=== PATIENT | male | born 1980 | race Caucasian/White ===

== ENCOUNTER 2016-08-03 02:54 | Emergency (ER) | payer OTHER ==
[~2016-08-03] VITALS: Ht 190.5 cm; Wt 80.7 kg
[2016-08-03 03:23] VITALS: BP 117/77
[2016-08-03] MEDS ORDERED: AMOXICILLIN500 M3 PO (03:28)
--- NOTE | 2016-08-03 03:28 | ED EAR COMPLAINT ---
History of Present Illness General Chief Complaint: Ear Complaints Stated Complaint: EAR PAIN Source: patient, old records Exam Limitations: no limitations Vital Signs & Intake/Output Vital Signs & Intake/Output Vital Signs Date Time Temp Pulse Resp B/P Pulse O2 O2 Flow FiO2 Ox Delivery Rate 08/03 0323 97.1 79 16 117/77 98 Room Air Allergies Coded Allergies: MDX - Nka - No Known Allergies (NKA - NO KNOWN ALLERGIES) (02/25/14) Reconcile Medications Amoxicillin 500 MG TABLET 1 TAB PO TID EAR INFECTION Triage Note: PT STATES HE HAS SEVERE PAIN IN EAR THAT RADIATES TO THROAT. PER PT PAIN STARTED LAST NIGHT, "MAYBE IT'S STREP" PT STATES HE IS UNBALE TO SWALLOW DUE TO THE PAIN. Triage Nurses Notes Reviewed? yes HPI: Patient presents with a left earache that started this evening. The pain is 8 out of 10. The pain has kept him up and he is unable to sleep secondary to pain. There is been no relief with Motrin. There is no decrease in his hearing or ringing in his ears. Patient has had an upper respiratory infection for the past 3 days with a runny nose with clear discharge. Patient denies any fevers or chills. There is no difficulty breathing or swallowing. Past History Travel History Traveled to [place] past 21 day No Medical History Any Pertinent Medical History? none Surgical History Surgical History: non-contributory Psychosocial History What is your primary language Romanian Tobacco Use: Never used ETOH Use: denies use Illicit Drug Use: denies illicit drug use Family History Hx Contributory? No Review of Systems Review of Systems Constitutional: Reports: no symptoms. EENTM: Reports: see HPI, ear pain, nasal congestion. Respiratory: Reports: no symptoms. Cardiovascular: Reports: no symptoms. GI: Reports: no symptoms. Neurological/Psychological: Reports: no symptoms. Physical Exam Physical Exam General Appearance: well developed/nourished, alert, awake Head: atraumatic Eyes: Bilateral: PERRL, EOMI. Ears: Left: Tympanic dull, Tympanic red. Right: canal normal, Tympanic normal. Nose: normal inspection Mouth/Throat: normal mouth inspection, pharynx normal Neck: normal inspection, supple, full range of motion Cardiovascular/Respiratory: normal breath sounds, normal peripheral pulses, regular rate/rhythm, no respiratory distress Neurologic/Psych: no motor/sensory deficits, awake, alert, oriented x 3, normal gait, normal mood/affect Progress Differential Diagnoses I considered the following diagnoses in my evaluation of the patient: [OTITIS MEDIA] Plan of Care: Current Medications Sig/Campos Start time Last Medication Dose Stop Time Status Admin Amoxicillin 500 MG ONCE ONE 08/03 329 UNVr (Amoxil) 08/03 330 Oxycodone/ 1 TAB ONCE ONE 08/03 329 UNVr Acetaminophen 08/03 330 (Percocet) Initial ED EKG: none Departure Departure Disposition: HOME OR SELF CARE Condition: Stable Clinical Impression Primary Impression: Left otitis media Referrals: RICHI EDDY DO (PCP/Family) Additional Instructions: return if symptoms worsen or for any concerns Departure Forms: Customer Survey General Discharge Information Prescriptions: Current Visit Scripts Amoxicillin 1 TAB PO TID #21 TAB
== END 2016-08-03 03:40 ==
LOC: ERH 02:54
DX: H66.92 Otitis media, unspecified, left ear (principal)

== ENCOUNTER 2018-04-14 08:29 | Emergency (ER) | payer OTHER ==
[~2018-04-14] VITALS: Ht 190.5 cm; Wt 80.7 kg
[~2018-04-14 08:29] MED LIST: AMOXICILLIN500 M3 PO; FLOMAX0.4 M1 PO; IBUPROFEN800 M1 PO; PERCOCET 5-3251 EACH PO; ZOFRAN ODT4 M1 SL
[2018-04-14 09:01] LABS: ABSOLUTE BASOPHIL COUNT 0 /CUMM (0.0-0.2); ABSOLUTE EOSINOPHIL COUNT 0 /CUMM (0.0-0.7); ABSOLUTE GRANULOCYTE CT 3.4 /CUMM (1.4-6.5); ABSOLUTE LYMPH COUNT 0.6 /CUMM (1.2-3.4); ABSOLUTE MONOCYTE COUNT 0.3 /CUMM (0.10-0.60); BASOPHIL % 0.9 % (0.0-2.0); EOSINOPHIL % 0.2 % (0-5); HEMATOCRIT 42.5 % (42-52); MEAN CORPUSCULAR HGB 30.6 PG (27.0-31.0); MEAN CORPUSCULAR HGB CONC 34.8 G/DL (33.0-37.0); MEAN PLATELET VOLUME 7.2 FL (7.4-10.4); PLATELET COUNT 246 /CUMM (130-400); RBC DISTRIBUTION WIDTH 13.1 % (11.5-14.5); RED BLOOD CELL CT 4.83 /CUMM (4.70-6.10); WHITE BLOOD CELL COUNT 4.3 /CUMM (4.8-10.8)
[2018-04-14 09:02] LABS: GRANULOCYTE % 78.1 % (42.2-75.2)
[2018-04-14 09:13] LABS: PTT 31 SEC (25-37)
[2018-04-14 10:49] VITALS: BP 110/67
--- NOTE | 2018-04-14 11:08 | ED GENERAL ADULT ---
History of Present Illness General Chief Complaint: General Adult Stated Complaint: BLOODY STOOLS; LEG AND FEET PAIN Source: patient Exam Limitations: no limitations Vital Signs & Intake/Output Vital Signs & Intake/Output Vital Signs Date Time Temp Pulse Resp B/P B/P Pulse O2 O2 Flow FiO2 Mean Ox Delivery Rate 04/14 1049 99.1 79 16 110/67 98 Room Air 04/14 0841 99.6 103 18 123/82 99 Room Air Allergies Coded Allergies: No Known Allergies (06/05/17) Reconcile Medications No Known Home Medications Triage Note: 37M TO ED FOR BRB TO STOOL, SAW PMD YESTERDAY. REPORTS SORENESS AND PAIN TO BILATERAL THIGHS THAT DESCENDS DOWN SINCE LAST NIGHT, WAS UNABLE TO SLEEP. DENIES RECENT CONSTIPATION. DENIES THINNERS. +HEADACHE, DENIES DIZZINESS, LIGHTHEADEDNESS, OR CP/PALP/YO. DENIES ANY ABDOMINAL PAIN. DENIES SYMPTOMS Triage Nurses Notes Reviewed? yes HPI: 37 year old male with PMH kidney stones presenting with bright red blood per rectum x two bowel movements. Patient states he was sick with flu-like sx last week. He was seen by his PCP: negative rectal exam for hemorrhoids, negative flu and strep. Patient states his sx resolved except for BRBPR yesterday and this morning. Patient states he woke up at 11pm with severe bilateral lower extremity muscle aches and pain in both feet. He was unable to sleep. He took tylenol for sx with minimal relief. He was advised by his PCP to come to ED. Patient states he has had BRBPR intermittently for about 6months. He is unsure of his family hx for colon cancer, but does know that his father had cancer ( unsure of type). His PCP has arranged for him to see a layboy tender. Patient lives with his and two children-no recent illness or similar sx. (Martin QUIROS,Emy) Past History Travel History Traveled to [place] past 21 day No Medical History Any Pertinent Medical History? see below for history Neurological: NONE EENT: NONE Cardiovascular: NONE Respiratory: NONE Gastrointestinal: NONE Hepatic: NONE Renal: NONE Musculoskeletal: NONE Psychiatric: NONE Endocrine: NONE Blood Disorders: NONE Cancer(s): NONE [employer] DEVELOPER/Reproductive: NONE Surgical History Surgical History: non-contributory Psychosocial History What is your primary language Uruguayan Tobacco Use: Never used Family History Family History, If Any: FATHER Relation not specified for: FHx: cancer Hx Contributory? Yes (Emy Salazar MD) Review of Systems Review of Systems Constitutional: Reports: malaise, weakness. Denies: chills, diaphoresis, fever. EENTM: Reports: no symptoms. Respiratory: Reports: no symptoms. Cardiovascular: Reports: no symptoms. GI: Reports: no symptoms. Genitourinary: Reports: no symptoms. Musculoskeletal: Reports: no symptoms, muscle pain. Denies: back pain, joint swelling, muscle stiffness, neck pain. Skin: Reports: no symptoms. Neurological/Psychological: Reports: no symptoms. (Emy Salazar MD) Physical Exam Physical Exam General Appearance: well developed/nourished, no apparent distress, alert, awake , anxious Head: atraumatic, normal appearance Eyes: Bilateral: normal appearance. Ears, Nose, Throat: moist mucus membranes Neck: normal inspection, supple, full range of motion Respiratory: normal breath sounds, chest non-tender, no respiratory distress Cardiovascular: regular rate/rhythm, normal peripheral pulses Peripheral Pulses: 2+ radial (R), 2+ radial (L), 2+ tibialis posterior (R), 2+ tibialis posterior ( L), 2+ dorsalis pedis (R), 2+ dorsalis pedis (L) Gastrointestinal: normal bowel sounds, soft, non-tender Rectal: normal exam, normal rectal tone, heme positive stool; no gross blood Extremities: normal inspection, normal capillary refill, normal range of motion, no edema Neurologic/Psych: no motor/sensory deficits, awake, alert, oriented x 3, normal gait Skin: intact, normal color, warm/dry Core Measures ACS in differential dx? No CVA/TIA Diagnosis: No Sepsis Present: No Sepsis Focused Exam Completed? No (Emy Salazar MD) Progress Differential Diagnoses I considered the following diagnoses in my evaluation of the patient: [viral syndrome vs internal hemorrhoids vs colon cancer] Plan of Care: Orders Procedure Date/time Status MISTAKE 04/14 08 Active PARTIAL THROMBOPLASTIN TIME 04/14 0832 Complete PROTHROMBIN TIME 04/14 0832 Complete LIPASE 04/14 0832 Complete COMPREHENSIVE METABOLIC PANEL 04/14 08 Complete CBC WITHOUT DIFFERENTIAL 04/14 08 Complete Laboratory Tests 04/14/18 0851: Anion Gap 9, Estimated GFR > 60, BUN/Creatinine Ratio 14.4, Glucose 112 H, Calcium 9.3, Total Bilirubin 0.6, AST 23, ALT 56, Alkaline Phosphatase 48, Total Protein 7.4, Albumin 4.4, Globulin 3.0, Albumin/Globulin Ratio 1.5, Lipase 34, PT 13.0 H, INR 1.19 H, APTT 31, CBC w Diff NO MAN DIFF REQ, RBC 4.83, MCV 88.0 , MCH 30.6, MCHC 34.8, RDW 13.1, MPV 7.2 L, Gran % 78.1 H, Lymphocytes % 13.7 L, Monocytes % 7.1, Eosinophils % 0.2, Basophils % 0.9, Absolute Granulocytes 3.4, Absolute Lymphocytes 0.6 L, Absolute Monocytes 0.3, Absolute Eosinophils 0 , Absolute Basophils 0 Initial ED EKG: none Comments: 37-year-old male with no significant past medical history presenting with bilateral lower extremity myalgias for 1 day. Patient reports two episodes of BRBPR yesterday and today with intermittent sx over the past 6 months. Rectal exam was positive for blood in stool today. Patient already with referral to GI from PCP for further evaluation. No signs of hemodynamic instability or acute infectious process. Patient with recent viral infection and return of myalgias isolated to BLE currently. Advised patient to keep these upcoming appointments, continue tylenol for sx relief, and to return to ED if symptoms progress (ie worsening leg pain, swelling, inability to walk, fevers, severe headache). (Emy Salazar MD) Departure Departure Time of Disposition: 1123 Disposition: HOME OR SELF CARE Condition: Stable Clinical Impression Primary Impression: Myalgia Secondary Impressions: Rectal bleeding Referrals: Samson Alfonso DO (PCP/Family) Additional Instructions: Follow up with your PCP. See the Lunchroom Supervisor as planned for bright red blood per rectum. Discuss with your family about history of known colon cancer and age of diagnosis if possible as this will be beneficial for your upcoming appointment. Stay well hydrated. Take tylenol for symptomatic relief of aches and pains. Return to ED for worsening symptoms including fevers, chills, continued rectal bleeding, progressive weakness/pain of lower extremities. Departure Forms: Customer Survey General Discharge Information Prescriptions: Current Visit Scripts No Known Home Medications (Emy Salazar MD) PA/STREET CAR INSPECTOR Co-Sign Statement Statement: ED Attending supervision documentation- I saw and evaluated the patient. I have also reviewed all the pertinent lab results and diagnostic results. I agree with the findings and the plan of care as documented in the PA's/STREET CAR INSPECTOR's documentation. x I have reviewed the ED Record and agree with the PA's/STREET CAR INSPECTOR's documentation. [] Additions or exceptions (if any) to the PAs/STREET CAR INSPECTOR's note and plan are summarized below: [] (Cezar QUIROS,Giorgi) Critical Care Note Critical Care Note Critical Care Time: non-applicable (Martin QUIROS,Emy)
== END 2018-04-14 11:32 ==
LOC: ERH 08:29
PROVIDERS: Physician Assistant Medical
DX: M79.1 Myalgia (principal); K62.5 Hemorrhage of anus and rectum